=== PATIENT | female | born 1990 | race Caucasian/White ===

== ENCOUNTER 2024-01-21 10:41 | Outpatient (CLI) | payer OTHER, SELFPAY | END 2024-01-21 10:42 | disposition home or self-care (01) | PROVIDERS: Visit Provider Registered Nurse | DX: N92.0 Excessive and frequent menstruation with regular cycle (principal); Z13.220 Encounter for screening for lipoid disorders; Z13.1 Encounter for screening for diabetes mellitus | CPT/HCPCS: 80061; 82728; 82947; 83540; 83550; 84443 ==

== ENCOUNTER 2024-02-15 13:50 | Outpatient (CLI) | payer OTHER, SELFPAY ==
--- NOTE | 2024-02-15 14:00 | CRLHL7_ITS ---
For Patients: As a result of the Century Cures Act, medical imaging exams and procedure reports are released immediately into your electronic medical record. You may view this report before your referring provider. If you have questions, please contact your health care provider. INDICATION: excessive and frequent menstruation COMPARISON: none TECHNIQUE: 2D ricks scale and color Doppler images were acquired of the pelvis using a transabdominal and transvaginal approach. FINDINGS: Sonographic images demonstrate a normal size and smooth outer contour of the uterus. Uterus measures 10.6 cm in length by 5.4 cm in AP diameter by 6.6 cm in transverse dimension. The myometrium has a normal uniform echotexture. The endometrial lining measures 2.2 cm. Hyperechoic nodular area within the endometrium measures 7 x 4 x 8 millimeters. A small amount of endometrial fluid is noted. The right ovary measures 2.9 x 1.8 x 2.3 cm in size and the left ovary measures 3.5 x 2.9 x 2.2 cm. The ovaries demonstrate normal arterial and venous blood flow on color Doppler analysis. There are no suspicious fluid collections within the cul-de-sac. IMPRESSION: Endometrial thickness 2.2 cm with probable polyp measuring 8 millimeters. No uterine fibroid. Dictated by Usman Rasheed MD @ 02/16/2024 6:00:48 AM (Electronically Signed)
== END 2024-02-15 13:51 | disposition home or self-care (01) ==
LOC: US 13:51
PROVIDERS: Visit Provider Registered Nurse
DX: N92.0 Excessive and frequent menstruation with regular cycle (principal); R93.89 Abnormal findings on diagnostic imaging of other specified body structures
CPT/HCPCS: 76830; 76856; 93976

== ENCOUNTER 2024-04-14 06:03 | Day surgery (SDC) | payer OTHER, SELFPAY ==
[2024-04-14 06:19] VITALS: BMI 34.4
[2024-04-14 06:28] VITALS: BP 113/79; PULSE 77; RESP 20; TEMP 36.7; O2SAT 97
[2024-04-14 06:28] LABS: Ur HCG Qualitative* Negative (Negative)
[2024-04-14] MEDS: LACTATED RINGERS 1000 ML 1,000 ML 100 ML IV (06:50)
[2024-04-14] MEDS: SODIUM CHLORIDE 0.9 % (FLUSH) 10 ML SYRINGE IVF (06:53)
--- NOTE | 2024-04-14 07:10 | W.PM.H&PU ---
History & Physical Update History & Physical Update H&P Reviewed and patient assessed: No changes noted
--- NOTE | 2024-04-14 07:28 | PM.PROC ---
Procedure Note Time Seen by Provider: 08:02 Date Seen: 04/14/24 Date of procedure: 04/14/24 Will [facility] bill your pro fee for this procedure?: Yes Procedure: Preoperative diagnosis: 33 yo with menorrhagia. Postoperative diagnosis: Same. Procedure: Hysteroscopy, dilation and curettage, endometrial ablation with Seema. Anesthesia: Mac and paracervical block. Surgeon: Rhonda Cope MD Assist: None Estimated blood loss: 5 mL IV Fluid: 700 mL Specimen: Endometrial curettings, sent to path. Findings: On exam under anesthesia: The cervix and vagina appear normal. The uterus was anteverted position, approximately 8-10 week size, mobile and without masses or nodularity palpable. Adnexa were without mass or fullness palpable bilaterally. On hysteroscopy: Multiple polypoid masses. No other abnormalities noted. The uterus sounded to 10 cm. Cervical length 4.5 cm. Cavity length: 5.5 cm. Procedure: Yoli was taken to the operating room where conscious sedation was found to be adequate. She was placed in a dorsal lithotomy position and an exam under anesthesia was performed with the findings stated above. She was then prepped and draped in a normal sterile manner. An a bivalve is sterile speculum was placed in the vaginal canal. A paracervical block was placed using 0.5% Marcaine: 10 mL were injected at the 4 and 8 o'clock positions on the cervix. A single-toothed tenaculum was placed on the anterior lip of the cervix. The cervix was then dilated to Hegar 6. Uterus sounded to 10 cm. The cervix measured 4.5 cm. There for the cavity length was 5.5 cm. The Truclear hysteroscope was advanced into the uterus. A diagnostic hysteroscopy performed with normal saline as the insufflation medium. Findings are stated above. The Truclear incisor was then advanced into the camera. And the curettage performed with this incisor. The curettage took approximately 3 min. The cavity appeared normal once the curettage was performed completed. Total amount of insufflation medium used: 1200 mL. Deficit 200 mL. The hysteroscope was removed. The cervix was then dilated to Hegar 8. The Seema device was advanced into the uterus. The cavity check was completed and the ablation took place over 2 min. Patient received 30 mg of Toradol IV prior to the procedure. The Seema was removed, the hysteroscope readvanced to document ablation of the entire cavity. The hysteroscope was then removed. The single-toothed tenaculum removed from the anterior lip of the cervix. Silver nitrate was used to obtain hemostasis on the tenaculum sites. The patient tolerated this procedure well. Sponge, lap and instrument counts were correct x2 at the end of the procedure and the patient was taken to the recovery area in stable condition.
[2024-04-14] MEDS: BUPIVACAINE 0.5% 30 ML INJECTION (07:44)
[2024-04-14] MEDS: SILVER NITRATE APPLICATOR 1 EACH STICK..EA. TOPICAL (07:56)
[2024-04-14 08:10] VITALS: BP 103/67; PULSE 68; RESP 16; TEMP 35.9; O2SAT 96
--- NOTE | 2024-04-14 08:12 | W.ANESCHARGE ---
Anesthesia Charges Start Date/Time Anesthesia Start Date: 04/14/24 Anesthesia Start Time: 07:21 Stop Date/Time Anesthesia Stop Date: 04/14/24 Anesthesia Stop Time: 08:09
[2024-04-14 08:23] VITALS: BP 106/65; PULSE 66; RESP 16; O2SAT 96
--- NOTE | 2024-04-14 08:30 | W.ANESCHARGE ---
Anesthesia Charges Start Date/Time Anesthesia Start Date: 04/14/24 Anesthesia Start Time: 07:21 Stop Date/Time Anesthesia Stop Date: 04/14/24 Anesthesia Stop Time: 08:09
[2024-04-14 08:40] VITALS: BP 117/79; PULSE 74; RESP 16; TEMP 36.6; O2SAT 97
== END 2024-04-14 09:12 | disposition home or self-care (01) ==
LOC: OR 06:06
PROVIDERS: Visit Provider Obstetrics & Gynecology
PROC: 0UF98ZZ Fragmentation in Uterus, Via Natural or Artificial Opening Endoscopic (ICD-10-PCS; CPT 58563; principal; 2024-04-14 07:15)
DX: N92.0 Excessive and frequent menstruation with regular cycle (principal); D50.9 Iron deficiency anemia, unspecified; M06.9 Rheumatoid arthritis, unspecified
CPT/HCPCS: 58563; 00952; 81025; 88305; A9270; C1782; J0665; J1100; J1885; J2250; J2405; J2704; J3010; J3490; J7120